=== PATIENT | male | born 1985 | race Caucasian/White ===

== ENCOUNTER 2020-03-08 23:11 | Inpatient (IN) | payer OTHER ==
[~2020-03-08] VITALS: Ht 185.4 cm; Wt 86.2 kg
--- NOTE | 2020-03-08 23:20 | NUR ---
Patient BIB relatives/friends. Patient A/Ox4. Speech is clear, speaks in complete sentences. No acute neuro deficits. 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 Patient states his longest streak is 10 days counting. Respirations even and unlabored, no cough no sob. No cardiovascular distress, denies any cp, palpitations. Denies any n/v/d. Patient in bed at lowest position, sr upx2, call light within reach. Seizure precautions implemented per protocol.
[2020-03-08] MEDS ORDERED: HYDROMORPHONE 1 MG/1 ML DISP.SYRIN IV ONE (23:30)
[2020-03-08] MEDS ORDERED: ONDANSETRON 4 MG/2 ML VIAL IV ONE (23:30)
[2020-03-08] MEDS ORDERED: IV NORMAL SALINE 1000 ML BAG IV ONE (23:30)
[2020-03-09] MEDS ORDERED: LORAZEPAM 2 MG/1 ML VIAL IV ONE
[2020-03-09] MEDS ORDERED: ONDANSETRON 4 MG/2 ML VIAL ONE (00:13)
[2020-03-09] MEDS ORDERED: levETIRAcetam 500 MG/5 ML VIAL IV ONE (00:13)
[2020-03-09] MEDS ORDERED: LORAZEPAM 2 MG/1 ML VIAL ONE (00:14)
[2020-03-09] MEDS ORDERED: levETIRAcetam IV 500 MG in IV DEXTROSE 5% 100 ML IV ONE (00:15)
[2020-03-09 00:18] LABS: BASOPHILS # (AUTO) 0.1 K/uL (0.0-8.0); BASOPHILS % (AUTO) 0.9 % (0.0-2.0); CARBON DIOXIDE 26 mmol/L (21-32); CHLORIDE 105 mmol/L (98-107); CREATININE 1.5 mg/dL (0.6-1.3); EOSINOPHILS # (AUTO) 0.3 K/uL (0.0-0.7); EOSINOPHILS % (AUTO) 4.8 % (0.0-7.0); GLUCOSE 111 mg/dL (74-106); HEMATOCRIT 38.4 % (36.7-47.1); HEMOGLOBIN 12.2 g/dL (12.5-16.3); LYMPHOCYTES # (AUTO) 2.7 K/uL (20.0-40.0); LYMPHOCYTES % (AUTO) 37.4 % (20.5-51.5); MEAN CORPUSCULAR HEMOGLOBIN 18.9 uug (23.8-33.4); MEAN CORPUSCULAR HGB CONC 32 g/dL (32.5-36.3); MEAN CORPUSCULAR VOLUME 59.6 fL (73.0-96.2); MONOCYTES # (AUTO) 0.6 K/uL (2.0-10.0); MONOCYTES % (AUTO) 8.7 % (0.0-11.0); NEUTROPHILS # (AUTO) 3.5 K/uL (1.8-8.9); NEUTROPHILS % (AUTO) 48.2 % (38.5-71.5); PLATELET COUNT (AUTO) 259 K/uL (152-348); POTASSIUM 3.9 mmol/L (3.5-5.1); RED BLOOD CELL COUNT(AUTO) 6.45 MIL/uL (4.06-5.63); UREA NITROGEN, BLOOD 15 mg/dL (7-18); WHITE BLOOD COUNT (AUTO) 7.2 K/uL (3.6-10.2)
[2020-03-09 00:24] LABS: ALANINE AMINOTRANSFERASE 54 U/L (16-63); ALKALINE PHOSPHATASE 73 U/L (50-136); ASPARTATE AMINOTRANSFERASE 23 U/L (15-37); BILIRUBIN,DIRECT < 0.1 mg/dL (0.0-0.2); BILIRUBIN,TOTAL 0.3 mg/dL (0.2-1.0); CHOLESTEROL 174 mg/dL (<200); HDL CHOLESTEROL 40 mg/dL (40-60); TRIGLYCERIDES 325 MG/DL (30-150)
--- NOTE | 2020-03-09 01:13 | NUR ---
Patient in bed at lowest position, sr upx2, call light within reach. VSS, NAD, will continue to monitor.
[2020-03-09] MEDS ORDERED: ACETAMINOPHEN 325 MG TABLET PO PRN (01:15)
[2020-03-09] MEDS ORDERED: ONDANSETRON 4 MG/2 ML VIAL IV PRN (01:15)
[2020-03-09] MEDS ORDERED: MAGNESIUM HYDROXIDE 30 ML LIQUID UDC PO PRN (01:15)
[2020-03-09] MEDS ORDERED: HYDROCODONE/APAP 5-325MG TABLET PO PRN (01:15)
[2020-03-09] MEDS ORDERED: IV NS 1000 ML 1,000 ML IV ONE (01:15)
[2020-03-09] MEDS ORDERED: Z GUARD REMEDY PASTE 57 GM TUBE TOP PRN (01:15)
--- NOTE | 2020-03-09 01:53 | NUR ---
Report given to VIVIEN Blackburn @ TELE.
--- NOTE | 2020-03-09 02:29 | NUR ---
Patient was transported by VIVIEN Merlos via [facility]. Patient is sleeping, easy to arouse. Pt has no s/s of acute distress or pain at this time. Patient has delays in responding, but cooperative. Pt denies any SOB,CP, or N/V. LAC is intact and patent. V/S stable on room air. Safety measures in place. Fall and Seizure precaution in place. Bed low and locked in position. Bed alarm on. Will continue with the plan of care.
[2020-03-09 03:21] VITALS: BP 112/70
[2020-03-09 05:10] VITALS: BP 120/68
--- NOTE | 2020-03-09 06:30 | NUR ---
Pt. slept through the night. Pt awake and denies any acute distress or pain at this time. Pt denies any headache or CP. Patient had no episode of seizure noted on my shift. Comfort care and needs attended. Fall and seizure precaution maintained. V/S stable on room air. NSR 61 on tele monitor. Safety measures in place. Bed low and locked in position. Call light within reach. Padded side rails for seizure precaution. Will endorse to the oncoming nurse accordingly.
[2020-03-09 06:35] LABS: CREATININE 1.3 mg/dL (0.6-1.3); PHOSPHOROUS 4.2 mg/dL (2.5-4.9); POTASSIUM 3.9 mmol/L (3.5-5.1)
[2020-03-09 07:12] LABS: BASOPHILS # (AUTO) 0.1 K/uL (0.0-8.0); BASOPHILS % (AUTO) 1.1 % (0.0-2.0); EOSINOPHILS # (AUTO) 0.3 K/uL (0.0-0.7); EOSINOPHILS % (AUTO) 4.2 % (0.0-7.0); HEMATOCRIT 39.3 % (36.7-47.1); HEMOGLOBIN 12.2 g/dL (12.5-16.3); LYMPHOCYTES # (AUTO) 3.1 K/uL (20.0-40.0); LYMPHOCYTES % (AUTO) 43.5 % (20.5-51.5); MEAN CORPUSCULAR HEMOGLOBIN 18.6 uug (23.8-33.4); MEAN CORPUSCULAR HGB CONC 31 g/dL (32.5-36.3); MEAN CORPUSCULAR VOLUME 59.7 fL (73.0-96.2); MONOCYTES # (AUTO) 0.5 K/uL (2.0-10.0); MONOCYTES % (AUTO) 7.4 % (0.0-11.0); NEUTROPHILS # (AUTO) 3.1 K/uL (1.8-8.9); NEUTROPHILS % (AUTO) 43.8 % (38.5-71.5); PLATELET COUNT (AUTO) 243 K/uL (152-348)
[2020-03-09 07:23] LABS: RED BLOOD CELL COUNT(AUTO) 6.57 MIL/uL (4.06-5.63)
--- NOTE | 2020-03-09 08:15 | NUR ---
Patient awake, alert and verbally responsive. No signs of distress noted. No SOB. No complain of pain or discomfort. No complain of headache. IVF infusing on Left AC, Kept clean and comfortable. kept the call light within easy reach. Will continue to monitor.
[2020-03-09 11:08] VITALS: BP 103/56
[2020-03-09 15:05] VITALS: BP 146/65
--- NOTE | 2020-03-09 15:30 | NUR ---
Seen and Examined by Dr. Bedolla with order to be discharge Home today, Discharge Instructions given to patient and verbalized Understanding. All belongings and contrabands was signed and sent with patient. removed IV site, wrist band and nursing program coordinator. patient was discharge and left the building in stable condition.
[2020-03-09 19:20] LABS: EOSINOPHILS % (MANUAL) 5 % (0-8); LYMPHOCYTES % (MANUAL) 38 % (20-40); MONOCYTES % (MANUAL) 5 % (2-10); NEUTROPHILS % (MANUAL) 52 % (42-75)
== END 2020-03-09 15:30 | disposition home or self-care (01) | DRG 74 ==
LOC: ER 23:11 → TELE3 03-09 02:17
PROVIDERS: ADMIT Nurse Practitioner Acute Care; ATTEND Nurse Practitioner Acute Care
DX: G90.8 Other disorders of autonomic nervous system (principal); E86.0 Dehydration; R56.9 Unspecified convulsions; F15.90 Other stimulant use, unspecified, uncomplicated; E86.1 Hypovolemia
CPT/HCPCS: 36415; 70030-TC; 70450; 71045; 83735; 84100; 85025; 85730; 93005; 93307; 93880; G0378; J1953; J2060; J2405; J7030; J7060